=== PATIENT | female | born 1930 | race Caucasian/White ===

== ENCOUNTER 2018-10-08 15:53 | Inpatient (IN) | payer OTHER | END 2018-10-09 22:30 | disposition short-term general hospital (02) | LOC: ER 15:53 → WEST WING 10-09 18:59 → OVERFLOW 20:40 → CENTRAL 22:54 | DX: J44.1 Chronic obstructive pulmonary disease with (acute) exacerbation (principal); E87.1 Hypo-osmolality and hyponatremia; E11.9 Type 2 diabetes mellitus without complications; I10 Essential (primary) hypertension ==